=== PATIENT | female | born 1980 | race Caucasian/White ===

== ENCOUNTER 2017-11-20 09:42 | Emergency (ER) | payer OTHER ==
[2017-11-20] MEDS ORDERED: BUPIVACAINE 0.5% PF 10 ML VIAL ONE (10:20)
[2017-11-20] MEDS ORDERED: LIDOCAINE 1% MPF 2 ML AMPULE ONE (10:21)
[2017-11-20] MEDS ORDERED: IBUPROFEN 400 MG TAB ONE (10:34)
[2017-11-20] MEDS ORDERED: IBUPROFEN 200 MG TAB PO ONE (10:34)
[2017-11-20] MEDS ORDERED: LIDOCAINE VISCOUS 2% SOLN 15 ML UDC ONE (10:52)
--- NOTE | 2017-11-20 12:21 | EDPHYS ---
Physician Documentation [facility] Name: La Nance Age: 37 yrs Sex: Female : 1980 Arrival Date: 11/20/2017 Time: 09:46 Bed 20 Private MD: None, None ED Physician Shivam Santana HPI: 11/20 10:43 This 37 yrs old Female presents to ER via Ambulatory with complaints of cp LACERATION TO FINGER. 10:43 The patient or guardian reports a laceration, clean, simple. The complaints affect the cp distal phalanx left index finger. 10:43 Context: The problem was sustained at home, reports she was using knife to slice bread. cp Onset: The symptoms/episode began/occurred just prior to arrival. Associated signs and symptoms: Pertinent negatives: cyanosis distally, decreased sensation distally. MOVIE CRITIC: 09:56 LMP 10/24/2017 aj Historical: - Allergies: 09:56 Vicodin; aj - Home Meds: 09:56 citalopram oral [Active]; aj - PMHx: 09:56 Depression; aj - PSHx: 09:56 Wrist; aj - Immunization history:: Adult Immunizations up to date, Last tetanus immunization: up to date. - Social history:: Smoking status: Patient/guardian denies using tobacco. - Ebola Screening: : No symptoms or risks identified at this time. ROS: 10:45 Eyes: Negative for injury, pain, redness, and discharge. cp 10:45 Constitutional: Negative for body aches, chills, fever, poor PO intake. 10:45 ENT: Negative for drainage from ear(s), ear pain, sore throat, difficulty swallowing, difficulty handling secretions. 10:45 Cardiovascular: Negative for chest pain, palpitations. 10:45 Respiratory: Negative for cough, shortness of breath, wheezing. 10:45 Abdomen/GI: Negative for nausea, vomiting, and diarrhea, constipation. 10:45 Skin: Positive for laceration(s), of the distal phalanx left index finger. 10:45 Neuro: Negative for numbness, tingling. 10:45 All other systems are negative. Exam: 10:47 Head/Face: Normocephalic, atraumatic. cp 10:47 Constitutional: The patient appears in no acute distress, alert, awake, non-toxic, well developed, well nourished. 10:47 Eyes: Periorbital structures: appear normal, Conjunctiva: normal, no exudate, no injection, Lids and lashes: appear normal, bilaterally. 10:47 ENT: External ear(s): are unremarkable, Nose: is normal, Mouth: is normal, Posterior pharynx: is normal, airway is patent. 10:47 Neck: ROM/movement: is normal, is supple, without pain, no range of motions limitations, no nuchal rigidity. 10:47 Chest/axilla: Inspection: normal. 10:47 Cardiovascular: Rate: normal, Rhythm: regular. 10:47 Respiratory: the patient does not display signs of respiratory distress, Respirations: normal, no use of accessory muscles, no retractions, no splinting, no tachypnea, labored breathing, is not present. 10:47 Abdomen/GI: Exam negative for discomfort, distension, guarding, Inspection: abdomen appears normal. 10:47 Musculoskeletal/extremity: ROM: full active range of motion, in the left index finger. cp 10:47 Skin: injury, laceration(s), the wound is approximately 2 cm(s), of the radial side distal phalanx left index finger, that can be described as clean, linear, with mild bleeding. 10:47 Neuro: Sensation: 2 point discrimination is normal. Vital Signs: 09:56 BP 146 / 96; Pulse 64; Resp 19; Temp 98.5; Pulse Ox 97% on R/A; Weight 95.25 kg; Height aj 5 ft. 8 in. (172.72 cm); 12:20 BP 147 / 86; Pulse 71; Resp 16; Pulse Ox 99% on R/A; em 09:56 Body Mass Index 31.93 (95.25 kg, 172.72 cm) aj Laceration: 11:45 Wound Repair of 2cm ( 0.8in ) subcutaneous laceration to radial side distal phalanx cp left index finger. Linear shaped.. Distal neuro/vascular/tendon intact. Anesthesia: Digital block administered with 3 mls of Lido/Marcaine. Wound prep: Moderate cleansing by me, Wound irrigation by me. Skin closed with 3 5-0 Prolene using simple sutures and sterile technique. Dressed with Bacitracin, tube gauze. Patient tolerated well. MDM: 10:04 Patient medically screened. cp 10:15 Differential diagnosis: open fracture, simple laceration, nail injury. cp 12:20 Data reviewed: vital signs, nurses notes, radiologic studies, plain films. cp 12:20 Counseling: I had a detailed discussion with the patient and/or guardian regarding: the cp historical points, exam findings, and any diagnostic results supporting the discharge/admit diagnosis, radiology results, to return to the emergency department if symptoms worsen or persist or if there are any questions or concerns that arise at home. Response to treatment: the patient's symptoms have markedly improved after treatment, and as a result, I will discharge patient. 11/20 11:44 Order name: XRAY Hand LEFT 3 View cp 11/20 10:11 Order name: Prolene, Sutures; Complete Time: 10:23 cp 11/20 10:11 Order name: Dressing - Wound; Complete Time: 10:23 cp 11/20 10:11 Order name: Gloves, Sterile; Complete Time: 10:23 cp 11/20 10:11 Order name: Setup Suture Tray; Complete Time: 10:23 cp 11/20 10:12 Order name: Wound Care: please clean and irrigate wound; Complete Time: 10:24 cp Administered Medications: 10:50 Drug: Lidocaine (1 %) 5 ml {Note: administed per PA. Mohamud} Volume: 20 ml; Route: em Infiltration; 12:49 Follow up: Response: No adverse reaction; Pain is decreased em 10:50 Drug: Marcaine (0.5 %) 5 ml {Note: administed by PA. Mohamud} Volume: 10 ml; Route: em Infiltration; 12:49 Follow up: Response: No adverse reaction; Pain is decreased em Disposition: 11/20/17 12:21 Discharged to Home. Impression: Laceration without foreign body of finger without damage to nail - Left Index Finger. - Condition is Stable. - Discharge Instructions: Laceration Care, Adult. - Medication Reconciliation Form, Thank You Letter, Antibiotic Education, Prescription Opioid Use form. - Follow up: Private Physician; When: 7 - 10 days; Reason: Staple/Suture removal. - Problem is new. - Symptoms have improved. Addendum: 11/22/2017 13:26 Co-signature as Attending Physician, Shivam Santana MD. g s Signatures: Dispatcher [facility] Ting Sanches RN RN Ortiz August, DOOR TO DOOR SELLING AGENT DOOR TO DOOR SELLING AGENT em Mohamud Damon PA PA cp Starr, Gregory, MD MD gs Corrections: (The following items were deleted from the chart) 11/20 12:52 12:21 11/20/2017 12:21 Discharged to Home. Impression: Laceration without foreign body em of finger without damage to nail - Left Index Finger. Condition is Stable. Forms are Medication Reconciliation Form, Thank You Letter, Antibiotic Education, Prescription Opioid Use. Follow up: Private Physician; When: 7 - 10 days; Reason: Staple/Suture removal. Problem is new. Symptoms have improved. cp
--- NOTE | 2017-11-20 12:21 | ER ---
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 Small laceration noted to medial left 2 nd digit, bleeding controlled. Transition of care: patient was not received from another setting of care. Onset of symptoms was November 20, 2017. Care prior to arrival: None. 09:55 Method Of Arrival: Ambulatory aj 09:55 Acuity: МАРИНА 4 aj 10:35 Initial Sepsis Screen: Does the patient meet any 2 criteria? No. Patient's initial em sepsis screen is negative. Does the patient have a suspected source of infection? No. Patient's initial sepsis screen is negative. 10:35 Risk Assessment: Do you want to hurt yourself or someone else? Patient reports no em desire to harm self or others. Triage Assessment: 09:56 General: Appears in no apparent distress. comfortable, Behavior is calm, cooperative, aj appropriate for age. Pain: Complains of pain in palmar aspect of distal phalanx of left index finger and left index fingernail. Neuro: Level of Consciousness is awake, alert, obeys commands, Oriented to person, place, time, situation, Appropriate for age. Respiratory: Airway is patent Respiratory effort is even, unlabored, Respiratory pattern is regular, symmetrical. Derm: Skin is intact, is healthy with good turgor, Skin is pink, warm \T\ dry. normal. BUDGET SPECIALIST: 09:56 LMP 10/24/2017 aj Historical: - Allergies: 09:56 Vicodin; aj - Home Meds: 09:56 citalopram oral [Active]; aj - PMHx: 09:56 Depression; aj - PSHx: 09:56 Wrist; aj - Immunization history:: Adult Immunizations up to date, Last tetanus immunization: up to date. - Social history:: Smoking status: Patient/guardian denies using tobacco. - Ebola Screening: : No symptoms or risks identified at this time. Screenin:35 Abuse screen: Denies threats or abuse. Nutritional screening: No deficits noted. em Tuberculosis screening: No symptoms or risk factors identified. Fall Risk None identified. Assessment: 10:10 General: Appears in no apparent distress. uncomfortable, Behavior is calm, cooperative. em Pain: Pain currently is 7 out of 10 on a pain scale. Quality of pain is described as burning, Pain began 1 hour ago. Neuro: Level of Consciousness is awake, alert, obeys commands, Oriented to person, place, time, situation. Cardiovascular: Capillary refill < 3 seconds Patient's skin is warm and dry. Respiratory: Airway is patent Respiratory effort is even, unlabored, Respiratory pattern is regular, symmetrical. GI: Abdomen is flat. : No signs and/or symptoms were reported regarding the genitourinary system. Derm: Skin is intact, Skin is pink, warm \T\ dry. Musculoskeletal: Range of motion: intact in all extremities. Injury Description: Laceration sustained to dorsal aspect of distal phalanx of left index finger is clean, 0.5 to 2.5 cm long, not bleeding, was sustained 1-2 hours ago. a small amount of bleeding noted at this time. 10:10 Reassessment: I agree with assessment completed by Ortiz White LVN . aa5 Vital Signs: 09:56 BP 146 / 96; Pulse 64; Resp 19; Temp 98.5; Pulse Ox 97% on R/A; Weight 95.25 kg; Height aj 5 ft. 8 in. (172.72 cm); 12:20 BP 147 / 86; Pulse 71; Resp 16; Pulse Ox 99% on R/A; em 09:56 Body Mass Index 31.93 (95.25 kg, 172.72 cm) aj ED Course: 09:46 Patient arrived in ED. sb2 09:47 None, None is Private Physician. sb2 09:56 Triage completed. aj 09:56 Arm band placed on right wrist. Patient placed in an exam room. aj 09:58 Ortiz White LVN is Primary Nurse. em 10:04 Mohamud Damon PA is PHCP. cp 10:04 Shivam Santana MD is Attending Physician. cp 10:35 Patient has correct armband on for positive identification. Call light in reach. Adult em w/ patient. 10:36 Patient did not have IV access during this emergency room visit. em 12:20 Assist provider with laceration repair on palmar aspect of distal phalanx of left index em finger that was 2.5 cm. or less using sutures. Set up tray. Performed by Mohamud GUZMAN Dressed with 4X4s, Neosporin, Patient tolerated well. 13:05 XRAY Hand LEFT 3 View In Process Unspecified. EDMS Administered Medications: 10:50 Drug: Lidocaine (1 %) 5 ml {Note: administed per PA. Mohamud} Volume: 20 ml; Route: em Infiltration; 12:49 Follow up: Response: No adverse reaction; Pain is decreased em 10:50 Drug: Marcaine (0.5 %) 5 ml {Note: administed by PA. Mohamud} Volume: 10 ml; Route: em Infiltration; 12:49 Follow up: Response: No adverse reaction; Pain is decreased em Outcome: 12:21 Discharge ordered by . cp 12:51 Discharged to home ambulatory. em 12:51 Condition: good 12:51 Discharge instructions given to patient, family, Instructed on discharge instructions, Demonstrated understanding of instructions, follow-up care. 12:52 Patient left the ED. em Signatures: Dispatcher [employer] EDMS Ting Neal RN RN aj Munoz, Edgar, FRAME BUILDER FRAME BUILDER em Sara Peoples RN RN aa5 Mohamud Damon PA PA cp Billeau, Sheri sb2 Corrections: (The following items were deleted from the chart) 10:43 10:36 No provider procedures requiring assistance completed. em em
--- NOTE | 2017-11-20 13:21 | RAD REPORT ---
EXAM DESCRIPTION: RAD - Hand Left 3 View - 11/20/2017 1:04 pm CLINICAL HISTORY: Laceration second digit COMPARISON: None. FINDINGS: No fracture, dislocation or periosteal reaction noted. No foreign body or other soft tissu e abnormality. IMPRESSION: No bone abnormality. No foreign body.
== END 2017-11-20 12:52 | disposition home or self-care (01) ==
LOC: ER 09:42
PROC: 0JQK0ZZ Repair Left Hand Subcutaneous Tissue and Fascia, Open Approach (ICD-10-PCS; principal; 2017-11-20)
DX: S61.211A Laceration without foreign body of left index finger without damage to nail, initial encounter (principal); W26.0XXA Contact with knife, initial encounter; Y93.89 Activity, other specified; Y92.009 Unspecified place in unspecified non-institutional (private) residence as the place of occurrence of the external cause; F32.9 Major depressive disorder, single episode, unspecified; Z88.5 Allergy status to narcotic agent
CPT/HCPCS: 99283; J2001